=== PATIENT | male | born 1950 | race African-American/Black ===

== ENCOUNTER 2019-01-22 12:58 | Inpatient (IN) | payer MEDICARE, MEDICAID ==
[~2019-01-22] VITALS: Ht 180.3 cm; Wt 84.8 kg
[~2019-01-22 12:58] MED LIST: AMLO10TA4 PO; COR6 PO; FURO-152 PO; LISI-604 PO
[2019-01-22 13:00] VITALS: BP 196/88
[2019-01-22] MEDS ORDERED: DIPHENHYDRAMINE 50MG/ML VIAL IV PRN (14:15)
[2019-01-22] MEDS ORDERED: ONDANSETRON HCL 4MG/2ML INJ IV PRN (14:15)
[2019-01-22] MEDS ORDERED: HYDROMORPHONE HCL/PF 2MG/ML CPJ IV PRN (14:15)
[2019-01-22] MEDS ORDERED: DOCUSATE SODIUM 100MG CAPSULE PO PRN (14:15)
[2019-01-22] MEDS ORDERED: LORAZEPAM 2MG/ML CPJ IV PRN (14:15)
[2019-01-22] MEDS ORDERED: HYDRALAZINE 20MG/ML VIAL IV PRN (14:15)
[2019-01-22] MEDS ORDERED: IPRATROPIUM/ALBUTEROL 0.5-3(2.5)MG/3ML NEB INH PRN (14:15)
[2019-01-22] MEDS ORDERED: GUAIFENESIN 200MG/10ML SUGAR FREE UDC PO PRN (14:15)
[2019-01-22] MEDS ORDERED: MAGNESIUM/ALUMINUM HYDROXIDE/SIMETHICONE 30ML UDC PO PRN (14:15)
[2019-01-22] MEDS ORDERED: HYDROCODONE/ACETAMINOPHEN 5/325MG TABLET PO PRN (14:15)
[2019-01-22] MEDS ORDERED: ACETAMINOPHEN 325MG TABLET PO PRN (14:15)
[2019-01-22 15:27] LABS: BASOPHILS % 0.8 % (0.0-2.0); EOSINOPHILS % 0.8 % (0.0-5.0); LYMPHOCYTES % 15.9 % (20.0-50.0); MEAN CORPUSCULAR HEMOGLOBIN 16.1 pg (28.0-32.0); MEAN CORPUSCULAR VOLUME 56.8 fL (80.0-94.0); MEAN PLATELET VOLUME 8.4 fl (7.4-10.4); MONOCYTES % 9.1 % (2.0-8.0); NEUTROPHILS % 73.4 % (40.0-76.0); PLATELET 447 x1000/uL (130-400); RED BLOOD CELL COUNT 2.79 mill/uL (4.7-6.1); RED CELL DISTRIBUTION WIDTH 21.9 % (11.6-14.6)
[2019-01-22 15:39] LABS: HEMATOCRIT. 15.9 % (42.0-52.0); HEMOGLOBIN. 4.5 g/dL (14.0-18.0)
[2019-01-22 16:00] VITALS: BP 178/74
[2019-01-22] MEDS ORDERED: HYDRALAZINE 10 MG in SODIUM CHLORIDE 0.9% 49.5 ML IV PRN (16:00)
[2019-01-22 16:14] LABS: PLATELET ESTIMATE INCREASED
[2019-01-22 20:00] VITALS: BP 178/84
[2019-01-22 22:22] VITALS: BP 162/75
[2019-01-22] MEDS: SODIUM CHLORIDE 0.9% INJ 3ML FLUSH IVF SCH (22:28)
[2019-01-22 22:37] VITALS: BP 164/81
[2019-01-22 23:37] VITALS: BP 171/86
[2019-01-23] VITALS (16 sets, daily range): BP systolic 94–184; BP diastolic 64–92
[2019-01-23] MEDS: CLONIDINE 0.1MG TABLET PO PRN ×2 (01:32→13:28)
[2019-01-23 02:20] LABS: BASOPHILS % 1.6 % (0.0-2.0); LYMPHOCYTES % 12.2 % (20.0-50.0); MEAN CORPUSCULAR HEMOGLOBIN 17.8 pg (28.0-32.0); MEAN CORPUSCULAR VOLUME 61.4 fL (80.0-94.0); MEAN PLATELET VOLUME 7.1 fl (7.4-10.4); MONOCYTES % 9.7 % (2.0-8.0); NEUTROPHILS % 75.5 % (40.0-76.0); PLATELET 430 x1000/uL (130-400); RED BLOOD CELL COUNT 3.04 mill/uL (4.7-6.1); RED CELL DISTRIBUTION WIDTH 26.1 % (11.6-14.6)
[2019-01-23 02:29] LABS: HEMATOCRIT. 18.7 % (42.0-52.0); HEMOGLOBIN. 5.4 g/dL (14.0-18.0)
[2019-01-23 02:37] LABS: CREATINE KINASE MB FRACTION 1.2 ng/mL (0.5-3.6)
[2019-01-23] MEDS: SODIUM CHLORIDE 0.9% INJ 3ML FLUSH IVF SCH ×3 (05:37→22:23)
[2019-01-23 09:47] LABS: CREATINE KINASE MB FRACTION 1.1 ng/mL (0.5-3.6)
[2019-01-23 10:20] LABS: CHLORIDE 108 mEq/L (98-107)
[2019-01-23 10:34] LABS: BASOPHILS % 1.3 % (0.0-2.0); EOSINOPHILS % 0.6 % (0.0-5.0); HEMATOCRIT. 22.8 % (42.0-52.0); LYMPHOCYTES % 8.3 % (20.0-50.0); MEAN CORPUSCULAR HEMOGLOBIN 19.3 pg (28.0-32.0); MEAN PLATELET VOLUME 8.5 fl (7.4-10.4); MONOCYTES % 6.8 % (2.0-8.0); PLATELET 456 x1000/uL (130-400); RED BLOOD CELL COUNT 3.56 mill/uL (4.7-6.1); RED CELL DISTRIBUTION WIDTH 28.7 % (11.6-14.6)
[2019-01-23 10:39] LABS: HEMOGLOBIN. 6.9 g/dL (14.0-18.0)
[2019-01-23 12:26] LABS: T4 FREE 0.96 ng/dL (0.76-1.46)
[2019-01-23] MEDS: OMEPRAZOLE 20MG CAPSULE EXTENDED RELEASE PO SCH (14:27)
[2019-01-23] MEDS ORDERED: DIATR MEGLU/DIATRIZOATE SOLN 30ML PO SCH (16:15)
[2019-01-23 19:49] LABS: BASOPHILS % 1.1 % (0.0-2.0); EOSINOPHILS % 0.9 % (0.0-5.0); HEMATOCRIT. 26.5 % (42.0-52.0); HEMOGLOBIN. 7.8 g/dL (14.0-18.0); LYMPHOCYTES % 11.2 % (20.0-50.0); MEAN CORPUSCULAR HEMOGLOBIN 19.7 pg (28.0-32.0); MEAN PLATELET VOLUME 8.5 fl (7.4-10.4); MONOCYTES % 8.8 % (2.0-8.0); PLATELET 473 x1000/uL (130-400); RED BLOOD CELL COUNT 3.96 mill/uL (4.7-6.1); RED CELL DISTRIBUTION WIDTH 32.1 % (11.6-14.6)
[2019-01-23 19:59] LABS: CHLORIDE 106 mEq/L (98-107)
[2019-01-23 20:07] LABS: CREATINE KINASE MB FRACTION 1.1 ng/mL (0.5-3.6)
[2019-01-23 20:08] LABS: CREATINE KINASE 149 IU/L (39-308); TOTAL IRON BINDING CAPACITY 448 ug/dL (250-450)
[2019-01-23] MEDS ORDERED: IOHEXOL-300 100 ML BOTTLE ONE (20:17)
[2019-01-24] VITALS: BP 158/78
[2019-01-24 01:47] LABS: CREATINE KINASE MB FRACTION 1.1 ng/mL (0.5-3.6)
[2019-01-24 04:00] VITALS: BP 146/66
[2019-01-24] MEDS: SODIUM CHLORIDE 0.9% INJ 3ML FLUSH IVF SCH ×3 (05:02→22:24)
[2019-01-24] MEDS: OMEPRAZOLE 20MG CAPSULE EXTENDED RELEASE PO SCH (07:59)
[2019-01-24 08:00] VITALS: BP 145/79
[2019-01-24 09:45] LABS: CREATINE KINASE MB FRACTION 1.1 ng/mL (0.5-3.6)
[2019-01-24 12:00] VITALS: BP 142/78
[2019-01-24] MEDS: METRONIDAZOLE 500 MG PREMIX 100 ML IV SCH ×2 (15:46→22:27)
[2019-01-24] MEDS: LEVOFLOXACIN 500MG PREMIX 100 ML IV SCH (15:46)
[2019-01-24 16:00] VITALS: BP 138/70
[2019-01-24] MEDS: DOCUSATE SODIUM 100MG CAPSULE PO SCH (17:28)
[2019-01-24] MEDS: FERROUS SULFATE 325MG TABLET PO SCH (17:28)
[2019-01-25] VITALS: BP 156/77
[2019-01-25 04:00] VITALS: BP 180/78
[2019-01-25] MEDS: SODIUM CHLORIDE 0.9% INJ 3ML FLUSH IVF SCH (05:16)
[2019-01-25] MEDS: CLONIDINE 0.1MG TABLET PO PRN (05:16)
[2019-01-25] MEDS: METRONIDAZOLE 500 MG PREMIX 100 ML IV SCH (05:16)
[2019-01-25 07:08] LABS: CHLORIDE 106 mEq/L (98-107)
[2019-01-25 07:10] LABS: BASOPHILS % 1.4 % (0.0-2.0); EOSINOPHILS % 2.1 % (0.0-5.0); HEMATOCRIT. 25.9 % (42.0-52.0); LYMPHOCYTES % 8.3 % (20.0-50.0); MEAN CORPUSCULAR HEMOGLOBIN 20.5 pg (28.0-32.0); MEAN CORPUSCULAR VOLUME 66.6 fL (80.0-94.0); MEAN PLATELET VOLUME 8.5 fl (7.4-10.4); MONOCYTES % 9.2 % (2.0-8.0); PLATELET 411 x1000/uL (130-400); RED CELL DISTRIBUTION WIDTH 33.4 % (11.6-14.6)
[2019-01-25 08:00] VITALS: BP 163/63
[2019-01-25] MEDS: DOCUSATE SODIUM 100MG CAPSULE PO SCH (08:47)
[2019-01-25] MEDS: FERROUS SULFATE 325MG TABLET PO SCH (08:47)
[2019-01-25] MEDS: OMEPRAZOLE 20MG CAPSULE EXTENDED RELEASE PO SCH (08:47)
[2019-01-25 09:45] VITALS: BP 145/61
[2019-01-25 12:00] VITALS: BP 141/70
[2019-01-25] MEDS: LEVOFLOXACIN 500MG PREMIX 100 ML IV SCH (13:00)
[2019-01-26 10:11] LABS: SACCHAROMYCES CEREVISIAE IGM <20.0 Units (0.0-24.9)
[2019-01-29 13:06] LABS: SACCHAROMYCES CEREVISIAE IGG 28.6 Units (0.0-24.9)
== END 2019-01-25 13:54 | disposition home or self-care (01) | DRG 812 ==
LOC: 6EST 12:58 → 7WST 01-23 14:52
PROVIDERS: ADMIT Internal Medicine; ATTEND Internal Medicine
PROC: 30233N1 Transfusion of Nonautologous Red Blood Cells into Peripheral Vein, Percutaneous Approach (ICD-10-PCS; principal; 2019-01-22)
DX: D50.9 Iron deficiency anemia, unspecified (principal); K50.90 Crohn's disease, unspecified, without complications; K57.92 Diverticulitis of intestine, part unspecified, without perforation or abscess without bleeding; E86.0 Dehydration; I10 Essential (primary) hypertension; I27.20 Pulmonary hypertension, unspecified; G90.8 Other disorders of autonomic nervous system; R74.8 Abnormal levels of other serum enzymes; Z79.899 Other long term (current) drug therapy
CPT/HCPCS: 36415; 74177; 80048; 80061; 82550; 82553; 82728; 83036; 83540; 83550; 83880; 84439; 84443; 84484; 85379; 85651; 86140; 86256; 86671; 86850; 86900; 86920; 93005; 93306; 93970; C1893; J1956; J3490; J7040; J7050; J7620; P9016; Q9963; Q9967

== ENCOUNTER 2022-02-27 01:22 | Inpatient (IN) | payer MEDICARE, MEDICAID ==
[~2022-02-27] VITALS: Ht 180.3 cm; Wt 85.7 kg
[~2022-02-27 01:22] MED LIST changes: -LISI-604 PO; +LISI20TA31 PO
[2022-02-27] MEDS ORDERED: MAGNESIUM/ALUMINUM HYDROXIDE/SIMETHICONE 30ML UDC PO STA (02:19)
[2022-02-27] MEDS ORDERED: ONDANSETRON HCL 4MG/2ML INJ IV STA (02:19)
[2022-02-27] MEDS ORDERED: VISCOUS LIDOCAINE 2% 15 ML UDC PO STA (02:19)
[2022-02-27 03:11] LABS: HEMATOCRIT. 25.7 % (42.0-52.0); HEMOGLOBIN. 7.4 g/dL (14.0-18.0); MEAN CORPUSCULAR HEMOGLOBIN 17.3 pg (28.0-32.0); MEAN CORPUSCULAR VOLUME 60.1 fL (80.0-94.0); MEAN PLATELET VOLUME 8.2 fl (7.4-10.4); PLATELET 356 x1000/uL (130-400); RED BLOOD CELL COUNT 4.27 mill/uL (4.7-6.1); RED CELL DISTRIBUTION WIDTH 19.2 % (11.6-14.6)
[2022-02-27 03:19] LABS: CHLORIDE 102 mEq/L (98-107)
[2022-02-27 03:22] LABS: ETHANOL BLOOD < 10 mg/dL
[2022-02-27 03:30] LABS: CLARITY URINE CLEAR (CLEAR); COLOR URINE YELLOW (YELLOW); KETONES URINE NEGATIVE (NEGATIVE); LEUKOCYTE ESTERASE URINE NEGATIVE (NEGATIVE); NITRITE URINE NEGATIVE (NEGATIVE); OCCULT BLOOD URINE NEGATIVE (NEGATIVE); PH URINE >=9.0 (4.5-8.0); PROTEIN URINE NEGATIVE (NEGATIVE); SPECIFIC GRAVITY URINE 1.013 (1.005-1.030); UROBILINOGEN URINE 0.2 E.U./dL (0.2-1.0)
[2022-02-27 04:01] LABS: PLATELET ESTIMATE NORMAL
[2022-02-27] MEDS ORDERED: ASPIRIN 325MG EC TABLET PO SCH (04:15)
[2022-02-27] MEDS ORDERED: GUAIFENESIN 200MG/10ML SUGAR FREE UDC PO PRN (09:15)
[2022-02-27] MEDS ORDERED: DIPHENHYDRAMINE 50MG/ML VIAL IV PRN (09:15)
[2022-02-27] MEDS ORDERED: IPRATROPIUM/ALBUTEROL 0.5-3(2.5)MG/3ML NEB NEB PRN (09:15)
[2022-02-27] MEDS ORDERED: DOCUSATE SODIUM 100MG CAPSULE PO PRN (09:15)
[2022-02-27] MEDS ORDERED: ONDANSETRON HCL 4MG/2ML INJ IV PRN (09:15)
[2022-02-27] MEDS ORDERED: HYDROCODONE/ACETAMINOPHEN 5/325MG TABLET PO PRN (09:15)
[2022-02-27] MEDS ORDERED: LORAZEPAM 2MG/ML CPJ IV PRN (09:15)
[2022-02-27] MEDS ORDERED: MAGNESIUM/ALUMINUM HYDROXIDE/SIMETHICONE 30ML UDC PO PRN (09:15)
[2022-02-27] MEDS ORDERED: NA PHOS,M-B/NA PHOS,DI-BA ENEMA 118ML PR PRN (09:15)
[2022-02-27] MEDS ORDERED: NALOXONE HCL 0.4MG/ML VIAL IV PRN (09:15)
[2022-02-27] MEDS ORDERED: MORPHINE SULFATE 2 MG/ML CPJ (NOT FOR IM USE) IV PRN (09:15)
[2022-02-27 10:00] VITALS: BP 138/62
[2022-02-27 11:18] VITALS: BP 138/62
[2022-02-27] MEDS: ENOXAPARIN 40MG/0.4ML SYR SUBCUT SCH (11:43)
[2022-02-27 12:00] VITALS: BP 124/54
[2022-02-27 12:24] LABS: CHLORIDE 104 mEq/L (98-107)
[2022-02-27 16:00] VITALS: BP 125/58
[2022-02-27 17:10] LABS: TOTAL IRON BINDING CAPACITY 421 ug/dL (250-450)
[2022-02-27 17:37] LABS: FOLIC ACID (FOLATE) SERUM 8.1 ng/mL (>5.38)
[2022-02-27] MEDS: PANTOPRAZOLE SODIUM 40 MG/VIAL IV SCH (17:43)
[2022-02-27 20:00] VITALS: BP 167/76
[2022-02-27] MEDS: CLONIDINE 0.1MG TABLET PO PRN (20:21)
[2022-02-28] VITALS: BP 143/74
[2022-02-28 04:00] VITALS: BP 147/65
[2022-02-28 07:47] LABS: CHLORIDE 105 mEq/L (98-107)
[2022-02-28 08:00] VITALS: BP 149/61
[2022-02-28] MEDS: PANTOPRAZOLE SODIUM 40 MG/VIAL IV SCH (10:47)
[2022-02-28] MEDS: ENOXAPARIN 40MG/0.4ML SYR SUBCUT SCH (10:47)
[2022-02-28] MEDS: ASPIRIN 81MG EC TABLET PO SCH (10:47)
[2022-02-28 12:00] VITALS: BP 154/83
[2022-02-28 16:00] VITALS: BP 133/71
[2022-02-28 20:00] VITALS: BP 179/92
[2022-02-28] MEDS: IRON SUCROSE COMPLEX 100 MG/5 ML ML IV SCH (20:08)
[2022-02-28] MEDS: CLONIDINE 0.1MG TABLET PO PRN (20:28)
[2022-02-28 20:49] LABS: PROTHROMBIN TIME 11.1 sec (9.6-11.0)
[2022-02-28 20:56] LABS: BASOPHILS % 1.1 % (0.0-2.0); EOSINOPHILS % 3.2 % (0.0-5.0); HEMATOCRIT. 27.1 % (42.0-52.0); HEMOGLOBIN. 8.1 g/dL (14.0-18.0); LYMPHOCYTES % 15.6 % (20.0-50.0); MEAN CORPUSCULAR HEMOGLOBIN 17.8 pg (28.0-32.0); MEAN CORPUSCULAR VOLUME 59.7 fL (80.0-94.0); MONOCYTES % 7.5 % (2.0-8.0); NEUTROPHILS % 72.6 % (40.0-76.0); PLATELET 349 x1000/uL (130-400); RED BLOOD CELL COUNT 4.54 mill/uL (4.7-6.1); RED CELL DISTRIBUTION WIDTH 19.7 % (11.6-14.6)
[2022-02-28 20:59] LABS: CHLORIDE 104 mEq/L (98-107)
[2022-02-28 21:30] LABS: PLATELET ESTIMATE NORMAL
[2022-03-01] VITALS: BP 164/80
[2022-03-01] MEDS: CLONIDINE 0.1MG TABLET PO PRN ×2 (00:36→20:55)
[2022-03-01 04:00] VITALS: BP 135/52
[2022-03-01 07:15] LABS: BASOPHILS % 1.2 % (0.0-2.0); EOSINOPHILS % 4.6 % (0.0-5.0); HEMATOCRIT. 25.4 % (42.0-52.0); HEMOGLOBIN. 7.5 g/dL (14.0-18.0); LYMPHOCYTES % 11.7 % (20.0-50.0); MEAN CORPUSCULAR HEMOGLOBIN 17.7 pg (28.0-32.0); MEAN CORPUSCULAR VOLUME 60.3 fL (80.0-94.0); MEAN PLATELET VOLUME 8.3 fl (7.4-10.4); MONOCYTES % 9.1 % (2.0-8.0); NEUTROPHILS % 73.4 % (40.0-76.0); PLATELET 312 x1000/uL (130-400); RED BLOOD CELL COUNT 4.22 mill/uL (4.7-6.1); RED CELL DISTRIBUTION WIDTH 19.1 % (11.6-14.6)
[2022-03-01 08:00] VITALS: BP 151/62
[2022-03-01 08:05] LABS: CHLORIDE 106 mEq/L (98-107)
[2022-03-01] MEDS: ENOXAPARIN 40MG/0.4ML SYR SUBCUT SCH (09:00)
[2022-03-01] MEDS: ASPIRIN 81MG EC TABLET PO SCH (09:29)
[2022-03-01] MEDS: PANTOPRAZOLE SODIUM 40 MG/VIAL IV SCH (09:29)
[2022-03-01 12:00] VITALS: BP 145/76
[2022-03-01 16:00] VITALS: BP 179/83
[2022-03-01] MEDS ORDERED: DIATR MEGLU/DIATRIZOATE SOLN 30ML PO SCH (18:30)
[2022-03-01 20:00] VITALS: BP 169/92
[2022-03-01] MEDS: IRON SUCROSE COMPLEX 100 MG/5 ML ML IV SCH (20:13)
[2022-03-02] VITALS: BP 160/84
[2022-03-02 04:00] VITALS: BP 159/79
[2022-03-02 08:00] VITALS: BP 110/54
[2022-03-02] MEDS: PANTOPRAZOLE SODIUM 40 MG/VIAL IV SCH (08:32)
[2022-03-02] MEDS: ASPIRIN 81MG EC TABLET PO SCH (08:32)
[2022-03-02 12:00] VITALS: BP 123/74
[2022-03-02 13:27] VITALS: BP 123/74
== END 2022-03-02 14:45 | disposition home or self-care (01) | DRG 392 ==
LOC: ER 01:22 → 7EST 05:12 → ENRESERV 08:39
PROVIDERS: ADMIT Internal Medicine; ATTEND Internal Medicine
DX: K59.00 Constipation, unspecified (principal); K64.9 Unspecified hemorrhoids; K57.30 Diverticulosis of large intestine without perforation or abscess without bleeding; E86.0 Dehydration; I10 Essential (primary) hypertension; I25.10 Atherosclerotic heart disease of native coronary artery without angina pectoris; M47.816 Spondylosis without myelopathy or radiculopathy, lumbar region; D64.9 Anemia, unspecified; I11.0 Hypertensive heart disease with heart failure; M13.0 Polyarthritis, unspecified; J43.9 Emphysema, unspecified; M48.061 Spinal stenosis, lumbar region without neurogenic claudication; M48.07 Spinal stenosis, lumbosacral region; I50.9 Heart failure, unspecified; Z79.84 Long term (current) use of oral hypoglycemic drugs; Z79.899 Other long term (current) drug therapy
CPT/HCPCS: 36415; 74018; 74176; 80048; 80053; 80320; 81003; 82270; 82607; 82728; 82746; 83540; 83550; 84484; 85025; 85044; 93005; 99285; C9113; J1650; J2405; Q9963; G0480

== ENCOUNTER 2023-07-25 12:05 | Emergency (ER) | payer MEDICARE, MEDICAID ==
[~2023-07-25] VITALS: Ht 180.3 cm; Wt 83.9 kg
[2023-07-25 12:31] VITALS: BP 142/78; PULSE 70; RESP 16; TEMP 98.3; O2SAT 99
[2023-07-25] MEDS ORDERED: FAMOTIDINE 20MG TABLET PO ONE (12:45)
[2023-07-25 13:30] LABS: BASOPHILS % 0.2 % (0.0-2.0); HEMATOCRIT. 28.8 % (42.0-52.0); HEMOGLOBIN. 8.5 g/dL (14.0-18.0); LYMPHOCYTES % 7.9 % (20.0-50.0); MEAN CORPUSCULAR HGB CONC 29.6 g/dL (31.0-37.0); MEAN CORPUSCULAR VOLUME 64.2 fL (80.0-94.0); MEAN PLATELET VOLUME 7.9 fl (7.4-10.4); MONOCYTES % 10.4 % (2.0-8.0); NEUTROPHILS % 81.5 % (40.0-76.0); PLATELET 297 x1000/uL (130-400); RED BLOOD CELL COUNT 4.48 mill/uL (4.7-6.1); RED CELL DISTRIBUTION WIDTH 20.7 % (11.6-14.6); WHITE BLOOD COUNT 5.8 x1000/uL (4.5-11.0)
[2023-07-25 13:31] LABS: ADD RBC MORPHOLOGY YES; DIFFERENTIAL COMMENT 1
[2023-07-25 13:44] LABS: CHLORIDE 101 mEq/L (98-107); INDEX HEMOLYSI 1 (1-3); INDEX ICTERIC 1 (1-4); INDEX LIPEMIC 3 (1-3); POTASSIUM 4.1 mEq/L (3.5-5.1); SODIUM 137 mEq/L (136-145)
[2023-07-25 13:53] LABS: ALANINE AMINOTRANSFERASE 37 IU/L (13-61); ALBUMIN 3.9 g/dL (3.4-5.0); ASPARTATE AMINOTRANSFERASE 36 IU/L (15-37); BILIRUBIN TOTAL 0.7 mg/dL (0.1-1.0); CALCIUM 9.4 mg/dL (8.5-10.1); CARBON DIOXIDE 27 mEq/L (21-32); CREATININE 1.5 mg/dL (0.6-1.3); GLUCOSE 133 mg/dL (70-105); PROTEIN TOTAL 9.8 g/dL (6.0-8.3); UREA NITROGEN BLOOD 23 mg/dL (7-21)
[2023-07-25 14:02] LABS: ANISOCYTOSIS 2+; MICROCYTOSIS 2+; PLATELET ESTIMATE NORMAL
[2023-07-25 14:03] LABS: HYPOCHROMASIA 1+
== END 2023-07-25 14:18 | disposition home or self-care (01) ==
LOC: ER 12:05
DX: R11.2 Nausea with vomiting, unspecified (principal); R19.7 Diarrhea, unspecified; I10 Essential (primary) hypertension; I25.10 Atherosclerotic heart disease of native coronary artery without angina pectoris
CPT/HCPCS: 36415; 80053; 85025; 99283